=== PATIENT | male | born 1975 | race African-American/Black ===

== ENCOUNTER 2020-01-19 11:06 | Emergency (ER) | payer OTHER ==
[~2020-01-19] VITALS: Ht 182.9 cm; Wt 68.0 kg
[2020-01-19] MEDS ORDERED: IBUPROFEN 600MG TABLET PO ONE (12:30)
[2020-01-19 13:55] VITALS: BP 131/89
== END 2020-01-19 13:57 | disposition home or self-care (01) ==
LOC: ER 11:06
DX: M79.642 Pain in left hand (principal); G89.11 Acute pain due to trauma; V49.49XA Driver injured in collision with other motor vehicles in traffic accident, initial encounter; Y93.89 Activity, other specified; Y92.488 Other paved roadways as the place of occurrence of the external cause
CPT/HCPCS: 29125; 73130; 99283

== ENCOUNTER 2024-04-19 08:08 | Emergency (ER) | payer MEDICAID, OTHER ==
[~2024-04-19] VITALS: Ht 182.9 cm; Wt 68.0 kg
[2024-04-19 08:09] VITALS: BP 105/75; RESP 16; TEMP 99; O2SAT 100
[2024-04-19 08:14] VITALS: PULSE 100; O2SAT 98
== END 2024-04-19 09:40 | disposition left against medical advice (07) ==
LOC: ER 08:08
DX: R51.9 Headache, unspecified (principal); Z53.21 Procedure and treatment not carried out due to patient leaving prior to being seen by health care provider